=== PATIENT | male | born 1950 | race Caucasian/White ===

== ENCOUNTER → 2018-12-08 | Outpatient (CLI) | payer MEDICARE, OTHER | LOC: RAD 07:33 | DX: Z13.6 Encounter for screening for cardiovascular disorders (principal); Z87.891 Personal history of nicotine dependence ==

== ENCOUNTER → 2019-02-27 | Day surgery (SDC) | payer MEDICARE, OTHER | LOC: MSO 01-16 14:13 | DX: Z12.11 Encounter for screening for malignant neoplasm of colon (principal); N40.0 Benign prostatic hyperplasia without lower urinary tract symptoms; Z98.52 Vasectomy status; Z91.048 Other nonmedicinal substance allergy status | CPT/HCPCS: G0121; 00812; J2704; J3010; J7120 ==

== ENCOUNTER → 2021-05-23 | Outpatient (CLI) | payer MEDICARE, OTHER ==
[~2021-05-23] MED LIST: MORGIDOX 1X100100 MG PO
== END ==
LOC: RAD 10:00 → VAS 10:02
DX: R94.31 Abnormal electrocardiogram [ECG] [EKG] (principal)

== ENCOUNTER 2021-08-22 19:00 | Emergency (ER) | payer MEDICARE, OTHER ==
[2021-08-22 19:22] LABS: BASO # 0.01 (0.02-0.10); HEMATOCRIT 40.1 % (42.0-52.0); HEMOGLOBIN 12.9 g/dL (13.5-18.0); LYMPH# 1.32 (1.50-4.00); MEAN CELL VOLUME 93 fl (78-100); MEAN CORPUSCULAR HEMOGLOBIN 30 pg (27-31); MEAN CORPUSCULAR HGB CONC 32 g/dL (33-37); MEAN PLATELET VOLUME 9.2 fl (7.4-10.4); MONO # 0.49 (0.20-0.80); NEU # 4.66 (1.40-6.50); PLATELET COUNT 144 K/mm3 (130-400); RED BLOOD COUNT 4.33 M/mm3 (4.20-5.60); RED CELL DISTRIBUTION WIDTH 12.3 % (11.5-14.5); WHITE BLOOD COUNT 6.5 K/mm3 (4.8-10.8)
[2021-08-22 19:33] LABS: ALBUMIN 3.7 g/dL (3.4-4.8); POTASSIUM 3.4 mmol/L (3.5-5.1)
[2021-08-22 19:35] LABS: TOTAL PROTEIN 6.7 g/dL (6.2-8.1)
[2021-08-22 19:37] LABS: TOTAL BILIRUBIN 0.5 mg/dL (0.2-1.2)
[2021-08-22 21:17] LABS: URINE APPEARANCE CLEAR; URINE BILIRUBIN NEGATIVE (NEGATIVE); URINE BLOOD 50 ery/uL (NEGATIVE); URINE COLOR YELLOW; URINE GLUCOSE NEGATIVE (NEGATIVE); URINE KETONE NEGATIVE (NEGATIVE); URINE LEUKOCYTE ESTERASE NEGATIVE (NEGATIVE); URINE NITRATE NEGATIVE (NEGATIVE); URINE PROTEIN(semi-quant) TRACE mg/dL (NEGATIVE); URINE UROBILINOGEN NORMAL (NORMAL)
[2021-08-22 21:18] LABS: URINE MUCUS PRESENT (NOT PRESENT)
[2021-08-22] MEDS ORDERED: MORGIDOX 1X100100 MG PO (22:33)
[2021-08-22 22:52] VITALS: BP 111/60
== END 2021-08-22 22:52 | disposition home or self-care (01) ==
LOC: ED 19:00
PROVIDERS: Family Medicine
DX: R50.9 Fever, unspecified (principal)
CPT/HCPCS: J7030